=== PATIENT | male | born 1960 | race Hispanic/Latino ===

== ENCOUNTER 2023-11-20 22:29 | Inpatient (IN) | payer OTHER, SELFPAY ==
[2023-11-20 19:02] VITALS: BP 190/102
--- NOTE | 2023-11-20 19:08 | ED.GENMED ---
History of Present Illness
General
Chief Complaint: Musculo-Skeletal Complaint
Time Seen by Provider: 11/20/23 18:58
Travel History
Have you had any contact with someone who has COVID-19?: No
Do you have any symptoms of coronavirus? Fever > 100 degrees, chills, cough, shortness of breath, sore throat, loss of taste or smell, muscle aches, or headache?: No
History of Present Illness
History of Present Illness:
63-year-old male present with right leg pain status post slip and fall. Patient states that he was walking on rocks with crocs on when he slipped and fell. Patient denies striking his head or loss of consciousness. Patient reports right lower leg
pain. Patient denies numbness, weakness, or tingling. Patient is not on blood thinners. Patient did not receive pain medication prior to arrival.
Phy Exam
Physical Exam
Physical Exam:
General: Alert, no acute distress
Head: NCAT
Eyes: clear conjunctiva
Neck: supple
Cardiac: regular rate and rhythm, no murmur
Lungs: clear to auscultation bilaterally. No wheezes, rales, or rhonchi. Speaking full unlabored sentences. No respiratory distress.
Abdomen: soft, nondistended nontender. No rebound or guarding.
MSK: deformity distal shaft right tibia. No overlying laceration. no right medial or lateral malleoli tenderness to palpation. No tenderness to palpation right base of 5th metatarsal or right proximal fibula. no lower extremity edema bilaterally. 2+
right DP pulse. able to move toes. no tenderness to palpation right knee. Right lower extremity neurovascularly intact, compartments soft.
Skin: warm, dry
Neuro: Alert and oriented x3. no focal deficits
Course
Orders/Labs/Results
Orders:
Orders
11/20/23 19:06
Morphine Sulfate 4 mg IV NOW STA
Ondansetron Injectable [Zofran] 4 mg IV NOW STA
Tibia/Fibula, Right 2 View [CR Leg Tibia/fibula Right 2 Vw] Urgent
Comment:
Reason For Exam: distal deformity s/pfall
11/20/23 19:11
Type+Screen Urgent
BMP [Basic Metabolic Panel] Urgent
CBC/With Diff [Complete Blood Count/With Diff] Urgent
Protime/PTT Urgent
11/20/23 22:03
Admit/Transfer Patient As Directed
Co-Sign Provider:
Level of Care: Inpatient admission
Assign to:: Telemetry
Physician / Group: christie russell
Diagnosis: right tibia fx, fibula fx lucero/renal insuff hx,anemia
Reason for Telemetry: Arrhythmia
Date to Stop Telemetry: 11/23/23
Time to Stop Telemetry: 11:00
Reason for Hospitalization: right tibia fx, fibula fx lucero/renal insuff hx
Expected length of stay greater than two midnights?: Yes
ELOS- Estimated Length of Stay in days: 3
I certify the patient meets the requirements for IP care: Yes
Code Status As Directed
Resuscitation Status: Full Code
11/20/23 22:06
EKG [Electrocardiogram (*1)] Urgent
Reason for Study: PreOp
11/23/23 11:00
DC Protocol for Telemetry ONCE
Abnormal Lab Results
11/20/23
19:11
RBC 3.70 L 10^6/uL
(4.70-6.10)
Hgb 10.7 L g/dL
(13.0-18.0)
Hct 31.1 L %
(39.0-52.0)
MPV 10.7 H fL
(7.4-10.4)
Absolute Monos (auto) 0.9 H 10^3/uL
(0.1-0.6)
Monocytes % 9.4 H %
(1.7-9.3)
Chloride 111 H mmol/L
(98-107)
Carbon Dioxide 19 L mmol/L
(22-30)
BUN 46 H mg/dl
(9-20)
Creatinine 2.3 H mg/dL
(0.7-1.3)
Glucose 209 H mg/dl
(70-99)
11/20/23 19:11
11/20/23 19:11
Vital Signs
Initial and Last Documented VS:
Initial Vital Signs
Temp Pulse Resp BP Pulse Ox
98.8 F 86 18 190/102 97
11/20/23 19:02 11/20/23 19:02 11/20/23 19:02 11/20/23 19:02 11/20/23 19:02
Last Documented Vital Signs
Temp Pulse Resp BP Pulse Ox
98.8 F 78 16 171/89 97
11/20/23 19:02 11/20/23 21:19 11/20/23 21:19 11/20/23 21:19 11/20/23 21:19
Procedures
Splinting/Sling Placement
Right Lower Leg:
Pre-splint extermity exam: neurovascular intact
Type of splint: waldemar wrap and other (sugar tong and posterior)
Splint material: fiberglass
Splint checked by provider?: Yes
Normal distal neurovascular exam?: Yes
Additional information:
Applied posterior and sugar tong splint to right lower extremity. Neurovascularly intact. No immediate complications.
MDM/Problems Addressed
MDM/Problems Addressed:
Patient presents to the Emergency Department with right leg pain s/p slip and fall
Number and Complexity of Problems Addressed at the Encounter
� Chronic conditions affecting care:
� Acute Exacerbation and/or Progression of Chronic Illness:
� Differential Diagnosis includes: fracture, dislocation
Amount and/or Complexity of Data to be Reviewed and Analyzed
� I performed an independent evaluation of and my interpretation is:
EKG:
CT:
Xrays: right proximal fibular fracture, displaced right spiral tibia fracture
Laboratory Studies: creatinine 2.3 (unknown baseline)
Other:
� Review of other/old records reveals:
� Clinical information was obtained by an independent historian:
� Prescriptions/Medications Considered but not given:
� Further testing considered but not performed:
Risk of Complications and/or Morbidity or Mortality of Patient Management
� Social Determinants of health affecting care:
� Discussion with other providers (PCP, Hospitalists, Consultants, etc): Discussed with Dr. Ezequiel Britt, orthopedics, who recommended medical admission, NPO after midnight for surgery tomorrow. Discussed with hospitalist who accepts
� Escalation of care including admission/observation vs risk of discharge considered: 63yoM hx DM, HTN presenting with right leg pain s/p slip and fall. No other trauma. Xray right tibia/fibula shows proximal fibular fracture and displaced spiral
tibia fracture. Attempted reduction, splinted with posterior and sugar tong splint. Neurovascularly intact. Labs significant for creatinine 2.3 (unknown baseline). Patient reports history of CKD. Discussed with orthopedics who will consult, surgery
tomorrow. Discussed with hospitalist who accepts for admission.
*Critical Care Note
Total Time (30-74mins, 75-104mins- exclusive of procedures): Not Applicable
ED Attending Note
-
Portions of this chart may have been created with voice recognition software.� Occasional wrong word or��sound alike� substitutions may have occurred due to the inherent limitations of voice recognition software.
Discharge Plan
Departure
Patient Disposition: Admit
Date of Disposition: 11/20/23
Time of Disposition: 20:48
Presentation/result/management discussed w/ accepting MD/DO: Hospitalist
Patient with high blood pressure during this ER visit?: Yes
Discharge Problem:
Closed tibia fracture, Closed fracture of proximal end of fibula
Prescriptions:
No Action
Unobtainable
0
Referrals:
UNKNOWN - PT DOES,NOT KNOW [Family Provider] -
Interventions
Interventions:
*Risk Screen - Suicide Last Done: 11/20/23 19:03
*General Assessment Last Done: 11/20/23 19:04
*Neglect/Abuse Screening Last Done: 11/20/23 19:03
ED- Fall Risk Assessment Last Done: 11/20/23 21:19
*ED COVID-19 Vaccine History Last Done: 11/20/23 19:02
ED-Musculoskeletal Assessment Last Done: 11/20/23 21:19
Discharge Date and Time
Print Language: UZBEK
[2023-11-20] MEDS: MORPHINE SULFATE 4 MG IV (19:13)
[2023-11-20] MEDS: ZOFRAN 4 MG IV (19:13)
[2023-11-20 19:17] LABS: % Basophils 0.7 % (0-2); % Eosinophils 2.8 % (0-6); % Immature Granulocytes 0.3 % (0-0.5); % Lymphocytes 28.9 % (20.5-51.1); % Monocytes 9.4 % (1.7-9.3); % Neutrophils 57.9 % (42.2-75.2); Absolute Basophils 0.1 10^3/uL (0-0.2); Absolute Eosinophils 0.3 10^3/uL (0-0.7); Absolute Lymphocytes 2.6 10^3/uL (1.2-3.4); Absolute Monocytes 0.9 10^3/uL (0.1-0.6); Absolute Neutrophils 5.3 10^3/uL (1.4-6.5); Hematocrit 31.1 % (39.0-52.0); Hemoglobin 10.7 g/dL (13.0-18.0); Mean Corp Hgb Conc. 34.4 g/dL (33.0-37.0); Mean Corpuscular Hgb 28.9 pg (27.0-31.0); Mean Corpuscular Volume 84.1 fL (80.0-94.0); Mean Platelet Volume 10.7 fL (7.4-10.4); Nucleated Red Blood Cells % 0 % (-); Platelet Count 294 10^3/uL (130-400); Red Cell Dist. Width 13.1 % (11.5-14.5); White Blood Cell Count 9.2 10^3/uL (4.8-10.8)
[2023-11-20 19:27] LABS: APTT 29.6 Sec (23.4-35.0); INR 1.08; PT 13.8 Sec (11.4-14.6)
[2023-11-20 19:31] LABS: Blood Urea Nitrogen 46 mg/dl (9-20); Calcium 8.6 mg/dl (8.4-10.2); Carbon Dioxide 19 mmol/L (22-30); Chloride 111 mmol/L (98-107); Glucose 209 mg/dl (70-99); Potassium 4.7 mmol/L (3.5-5.1); Sodium 136 mmol/L (135-145); eGFR 31.13
[2023-11-20 21:19] VITALS: BP 171/89
--- NOTE | 2023-11-20 21:42 | HPS.HSE ---
Addendum entered and electronically signed by CHECO Rushing 11/20/23 23:04:
Patient medication reconciliation was updated
Takes aspirin 81 mg daily
Lipitor 80 mg at bedtime
Vitamin D3 125 mcg daily
Glimepiride 1 mg p.o. twice daily
Levothyroxine 75 mcg p.o. daily
Lisinopril 20 mg daily
Metformin 1000 mg twice daily
For SEGUNDO Dx
Will hold lisinopril 20 mg daily and metformin 1000 mg twice daily
Addendum entered and electronically signed by Bill Arboleda DO 11/20/23 22:39:
Patient is a 63y M with PMH significant for hypothyroidism, DM-II and hypertension who presents to ED complaining of R lower leg pain after [id number] today. Patient was camping locally and slipped and feel striking his R leg. He presented
to the ED for evaluation where imaging noted tib-fib fracture.
Patient denies any prior surgeries at all. He has no personal history of heart disease.
Ass:
Right Tib-Fib Fracture
Benign Hypertension
DM-II
SEGUNDO v CKD
Hypothyroidism
Normocytic Anemia
Plan:
Admit for further evaluation and treatment.
Ortho evaluation for operative repair.
Patient with no prior history of surgeries. No personal history of heart disease.
Increased risk for complications compared to an otherwise healthy individual of his age based on co-morbidities of HTN, DM, CKD.
Benefits of planned procedure outweigh the potential risks and patient is OK to proceed with surgery without additional pre-op evaluation(s).
Hold oral DM medications. Follow glucose and cover with SSI. Update A1C.
Hold lisinopril acutely. IVFs overnight.
Follow renal function over the next 48 hours to determine SEGUNDO v CKD.
Patient states that PCP did tell him his 'kidney numbers were a little high'.
Check iron studies, etc in regards to anemia.
Follow H&H and consider transfusion perioperatively if needed.
Original Note:
Family Physician
-
Family Physician: NOT KNOW UNKNOWN - PT DOES
Chief Complaint
-
Fall right leg pain
History of Present Illness
63-year-old male states she was walking on rocks while camping with her croc shoes when he slipped and fell hitting his right leg. He denies head injury/LOC but reports significant right leg pain. He denies headache, dizziness, fever, chills,
chest pain, palpitations, shortness breath, cough, abdominal pain, nausea, vomiting, diarrhea. He was noted to have a right tib-fib and proximal fibular fracture with displacement in the ER. His past medical history of hypertension, DM 2, renal
insufficiency.
Medical History
Past Medical History
Past Medical History: Reports Other
Additional Past Medical History:
hypertension
DM 2
renal insufficiency
Past Surgical History: Reports None
Social History
Tobacco: Non-smoker
Alcohol: None
Drug: None
Personal:
Living: With Family
Employment: Not Employed
Family History
Family History: Other (mother old age, father in Car accident , 1 of 3 sisters with HTN/DM2, 2 of 4 brothers withdm 2, daughter HTN)
Allergies / Home Medications
Allergies reflects when Allergies were last updated in [employer]
Home Medications with original date entered in [employer]
Allergy/Medication List:
Medications on admission are unable to be verified or confirmed at this time.
Review of Systems
-
History Source: Patient and Family (DAUGHTER AT BEDSIDE )
A 12 point ROS was completed and negative except as noted: Yes
Constitutional: Denies Fever or Chills
EENT: Denies Sore Throat or Runny Nose
Respiratory: Denies Cough or Trouble Breathing
Cardiac: Denies Chest Pain, Diaphoresis, Palpitations or Syncope
Abdomen/GI: Denies Abdominal Pain, Nausea, Vomiting, Diarrhea, Constipated, Bloody Stools or Black Stools
: Denies Dysuria, Frequency, Flank Pain, Incontinence, Difficulty Voiding or Urgency
Musculoskeletal: Reports Other (right leg pain); Denies Joint Pain or Edema
Skin: Denies Itching or Rash
Neurological: Denies Dizzy, Headache or Weakness
Endocrine: Reports No Symptoms
Hematologic/Lymphatic: Reports No Symptoms
Psych: Reports Calm
Physical Exam
Vital Signs
Vital Signs
Temp Pulse Resp BP Pulse Ox
98.8 F 78 16 171/89 97
11/20/23 19:02 11/20/23 21:19 11/20/23 21:19 11/20/23 21:19 11/20/23 21:19
Physical Exam
General: Conversant and Pain; No Fever or Chills
HEENT: NormoCephalic, Anicteric, Moist mucous membranes, Atraumatic, PERRLA, [place] Conjunctivae and No Ptosis
Respiratory: Clear; No Wheezes, Rales or Rhonchi
Cardiac: S1/S2 and Regular Rhythm; No Murmur, Rub, Gallop or Peripheral Edema
Breast: Deferred by me
GI: Soft, Non Tender, Non Distended, Normal Bowel Sounds and No Hepatosplenomegaly
Rectal: Deferred by Provider
Genito-urinary: Deferred by me
Musculoskeletal: No Clubbing, No Cyanosis, No Edema and Other (pain right lower leg 2/2 to fx, current posterior splint in place, sensation intact to distal toes , pink and warm)
Skin: Warm and Dry; No Rash
Neuro: AO x 3 (speaks polish and some chinese), Nonfocal/grossly intact, Cranial Nerves Intact and No Sensory Deficits; No Slurred Speech, Facial Droop or Tremors
Psych: Calm
Laboratory Results
-
11/20/23 19:11
11/20/23 19:11
Laboratory Results
PT 13.8 Sec (11.4-14.6) 11/20/23 19:11
INR 1.08 11/20/23 19:11
APTT 29.6 Sec (23.4-35.0) 11/20/23 19:11
Data Reviewed
-
Diagnostic Radiology: Report Reviewed by me
Lab Data: Labs Reviewed by me
Impression/Plan
-
Impression/plan:
Admit to Tele
#Mechanical fall with distal right tibial Diaphysis and displacement
# Mechanical fall with proximal right fibular displacement with angulation
-Consult Ortho
-Posterior OCL splint
-Pain control, bowel regimen
-Consult Ortho
-PT/OT/case management consult
-Check EKG
#SEGUNDO/ renal insufficiency hx unclear stage
Creat 2.3- no baseline labs here
- HOLD Metformin
-Iv Nss 80 cc/hr
-pt follows with Dr Dallin Devi [phone]
#Normocytic anemia
Hgb 10.7, MCV 84.1
Iron panel, B12, folate
#HTN�benign
Bp 171/89
- pt unsure of his meds
- iv Hydralazine 10 mg q6h prn SBP>165
#DM2
BS 209
-Accu-Cheks with SSI, check HgbA1c
-HOLD Metformin
DVT prophylaxis
Foot pumps
Full code
[2023-11-20 23:11] VITALS: BP 161/95
[2023-11-20] MEDS: NSS 1000 IV (23:38)
[2023-11-20 23:42] LABS: Glucose - Point of Care 249 mg/dl (70-99)
[2023-11-20 23:52] VITALS: BMI 21.6
[2023-11-21] VITALS (13 sets, daily range): BP systolic 105–170; BP diastolic 46–98; PULSE 102–107
[2023-11-21] MEDS: MORPHINE SULFATE 2 MG IV ×2 (00:21→06:30)
--- NOTE | 2023-11-21 01:03 | PTCARENOTE ---
23:10 pt admit from ER,dx: right tibia/fibula fx, RLE splint n place, IVF infusing as ordered, pt aaox3, speaks greek. at the bedside, orientation and admission given in patients language , verbalized understanding.
[2023-11-21 06:30] LABS: % Basophils 0.6 % (0-2); % Eosinophils 2.5 % (0-6); % Immature Granulocytes 0.3 % (0-0.5); % Lymphocytes 24.9 % (20.5-51.1); % Monocytes 10.6 % (1.7-9.3); % Neutrophils 61.1 % (42.2-75.2); Absolute Basophils 0.1 10^3/uL (0-0.2); Absolute Eosinophils 0.2 10^3/uL (0-0.7); Absolute Monocytes 0.9 10^3/uL (0.1-0.6); Absolute Neutrophils 4.9 10^3/uL (1.4-6.5); Hematocrit 29.2 % (39.0-52.0); Hemoglobin 9.7 g/dL (13.0-18.0); Mean Corp Hgb Conc. 33.2 g/dL (33.0-37.0); Mean Corpuscular Hgb 28.9 pg (27.0-31.0); Mean Corpuscular Volume 86.9 fL (80.0-94.0); Mean Platelet Volume 11.2 fL (7.4-10.4); Nucleated Red Blood Cells % 0 % (-); Platelet Count 270 10^3/uL (130-400); Red Blood Cell Count 3.36 10^6/uL (4.70-6.10); Red Cell Dist. Width 13.1 % (11.5-14.5)
[2023-11-21 06:50] LABS: Blood Urea Nitrogen 39 mg/dl (9-20); Calcium 8.4 mg/dl (8.4-10.2); Carbon Dioxide 19 mmol/L (22-30); Chloride 114 mmol/L (98-107); Estimated Creatinine Clearance 31 ml/min; Glucose 159 mg/dl (70-99); Iron 40 ug/dl (49-181); Potassium 4.5 mmol/L (3.5-5.1); Sodium 138 mmol/L (135-145); eGFR 32.83
[2023-11-21 07:00] LABS: Percent Saturation 14 % (20-50); Total Iron Binding Capacity 277 ug/dl (261-462)
--- NOTE | 2023-11-21 07:03 | CON.ORTHO ---
Consultation
-
Date/Time Consultation Requested: 11/20/23 @21:30
Date/Time Consultation Performed: 11/21/23 @0650
Requesting Provider: ER Physician
Performing Provider: Wendy Frias PA-C for Ezequiel Britt MD
Reason for Consultation: right tibia fracture
Consultation - Orthopedics
History
HPI 63yo male admitted to [facility] following a fall yesterday. [place]. He was walking on uneven ground and slipped and fell, landing on the right leg. He had immediate pain and was unable to bear weight. He denies
any other injuries. He was brought to ER for further evaluation. Xrays performed revealed right tibia and fibula fractures. He was placed into a splint and orthopedics was consulted for further management. He is not on any blood thinners.
Currently, he reports his pain is better controlled. He last ate last evening.
PAST MEDICAL HISTORY: hypertension, diabetes mellitus type 2, hypothyroidism
PAST SURGICAL HISTORY: None
SOCIAL HISTORY: denies tobacco, alcohol. He lives at home with his . He does not ambulate with any assistive device
FAMILY HISTORY: Noncontributory
REVIEW OF SYSTEMS: 12 point review of systems obtained and negative except those mentioned in the HPI
Allergies / Home Medications
Allergy/AdvReac Type Severity Reaction Status Date / Time
No Known Allergies Allergy Verified 11/20/23 19:06
�Medication �Instructions �Recorded
aspirin 81 mg chewable tablet 81 mg PO DAILY 11/20/23
atorvastatin 80 mg tablet (Lipitor) 80 mg PO HS 11/20/23
cholecalciferol (vitamin D3) 125 125 mcg PO DAILY 11/20/23
mcg (5,000 unit) tablet
glimepiride 1 mg tablet 1 mg PO BID 11/20/23
levothyroxine 75 mcg tablet 75 mcg PO DAILY 11/20/23
lisinopril 20 mg tablet 20 mg PO DAILY 11/20/23
metformin 1,000 mg tablet 1,000 mg PO BID 11/20/23
Vital Signs / Lab Results
Temp Pulse Resp BP Pulse Ox
98.2 F 81 16 155/96 97
11/21/23 03:40 11/21/23 03:40 11/21/23 03:40 11/21/23 03:40 11/21/23 03:40
11/21/23 05:16
11/21/23 05:16
RADIOGRAPHIC FINDINGS:
Xrays right tibia/fibula show acute spiral type fracture of the distal right tibia diaphysis with severe rotation and displacement of the distal fracture fragment. Acute obliquely oriented fracture of the proximal right fibular diaphysis with mild
displacement and angulation of the distal fracture fragment.
PHYSICAL EXAM:
General: AAOx3, well developed well nourished male in no acute distress
HEENT: NCAT, sclera anicteric, normal hearing
Heart: No JVD
Lungs: Normal work of breathing on room air
MSK: Focused exam of right lower extremity reveals splint in place. No signs of skin breakdown surrounding the splint. Wiggles all toes. Sensation intact to light touch. Cap refill <2secs
Assessment / Plan
ASSESSMENT: 63yo male admitted to [facility] following a mechanical fall resulting in right distal tibia and right proximal fibula fractures
PLAN: Unfortunately, Mr. Gonzalez has sustained right tibia and fibula fractures. Recommend operative fixation. The surgical procedure, risks, benefits, and potential complications were reviewed. He agrees to proceed with right tibia intramedullary
nail. Plan for OR today around 8am under the direction of Dr. Britt. Surgical and blood consents were obtained and placed on the chart. Surgical site marked. He is to remain NPO. Ancef contract negotiator to OR. Type and screen completed. Maintain splint for
now. Continue with pain management as needed. Will continue to follow along.
[2023-11-21 07:38] LABS: Glucose - Point of Care 138 mg/dl (70-99)
[2023-11-21] MEDS: SYNTHROID 75 MCG PO (07:45)
[2023-11-21] MEDS: APRESOLINE 10 MG IV ×2 (07:45→20:15)
[2023-11-21 07:57] LABS: Folate 13.1 ng/ml (2.76-20); Vitamin B12 785 pg/ml (239-931)
[2023-11-21 10:39] LABS: Glucose - Point of Care 180 mg/dl (70-99)
--- NOTE | 2023-11-21 10:46 | W.IMMPOSTOP ---
Surgical Immed Post Op Note
-
Primary Surgeon: Lorenza
Assisting Surgeon: Wendy Frias PA-C
Pre-op Diagnosis: Right tibia and proximal fibula fracture
Post-op Diagnosis: Same
Procedure Performed: Right tibia IM nail fixation
Anesthesia Type: General
Specimen / Cultures: None
Estimated Blood Loss: 10cc
Complications: None
Operative Findings: Dictated
Plan:
WBAT RLE
ASA 325 daily for 30 days for DVT prophylaxis
PT/ OT
--- NOTE | 2023-11-21 12:13 | PTCARENOTE ---
Pt returned to 2S in bed. RLE with decreased movement and sensation, unchanged from AM assessment, assessment otherwise intact. RLE maintained in soft splint/ cast. IVF infusing per order. Telemetry reapplied. Bed locked and in the lowest position,
safety maintained. Oriented to room and call johnston.
--- NOTE | 2023-11-21 14:52 | W.PN.HOSP.TC ---
Today's Communication/Plan
-
PT evaluation post surgical clearance
POD 0 from right tibia nailing
Assessment / Plan
Assessment / Plan
# Mechanical fall with distal right tibial Diaphysis and displacement
# Mechanical fall with proximal right fibular displacement with angulation
- s/p tibial Intra-medullar nailing.
- leg placed in splint postop
- PT/OT eval likely tomorrow
- not having excessive pain
#SEGUNDO vs CKD
AGAP Metabolic acidosis
-baseline unknown
-Known diabetic for 25 years, patient follows up with primary care physician not with nephrology
-Maintain on slow IV fluid and follow renal function
-Hold nephrotoxic medications
-pt follows with Dr Dallin Devi [phone]
#Normocytic anemia
-normocytic anemia, f/u level
#Essential HTN
-As needed hydralazine for systolic blood pressure to 160
#DM2
-Hold metformin/glimepiride with unknown renal function.
-Continue sliding scale
DVT prophylaxis - asa
Full code
Anticipated Discharge: 24 - 48 hours
Subjective/Interval History
-
Date of Service: November 21, 2023
Arabic-speaking patient
Family bedside and translating
not having excessive pain
Objective Data
-
Labs:
Laboratory Results
11/21/23
05:16
WBC 8.0
Hgb 9.7 L
Hct 29.2 L
Plt Count 270
Sodium 138
Potassium 4.5
Chloride 114 H
Carbon Dioxide 19 L
BUN 39 H
Creatinine 2.2 H
Glucose 159 H
Calcium 8.4
Vital Signs:
Vital Signs
Temp Pulse Resp BP Pulse Ox
98.0 F 102 14 155/83 96
11/21/23 12:55 11/21/23 12:55 11/21/23 12:55 11/21/23 12:55 11/21/23 12:55
I&O
11/20/23 11/21/23 11/22/23
06:59 06:59 06:59
Intake Total 640 / 640 100 / 100
Output Total 300 / 300
Balance 340 / 340 100 / 100
Review of Systems
-
Respiratory: Reports No Symptoms
Cardiac: Reports No Symptoms
Abdomen/GI: Reports No Symptoms
Physical Exam
-
General: No Apparent Distress and Comfortable
HEENT: Negative Oxygen
Respiratory: Clear to Auscultation
Cardiac: Regular Rhythm and S1/S2; Negative Murmur or Rub
GI: Soft, Nontender and Nondistended
Musculoskeletal: No Edema and Other (Right leg in cast)
Neuro: Awake, Alert, Oriented, No Motor Deficits and Nonfocal/Grossly Intact
Psych: Calm
--- NOTE | 2023-11-21 15:03 | CM ---
Initial assessment completed with pt and daughter at bedside.
Pt is honduran speaking, and is Self Pay.
Pt lives with his in their daughters family home. Home is 2 story home with 3 steps to enter.
Pt fell while on a camping trip. Indep prior and does not have any current/hx of SNF/VN/DME.
Underwent surgical repair for leg fractures today.
PCP; Fernando ELDER
Pharm; [facility]
PLAN; Will need PT to evaluate. Has supportive family to provide assistance at home if needs to be immobile.
[2023-11-21] MEDS: NSS 1000 IV (15:17)
[2023-11-21 15:26] LABS: Urine Albumin 3+ (Neg - Trace); Urine Bilirubin Negative (Negative); Urine Character Clear (Clear); Urine Color Yellow; Urine Glucose 2+ (Negative); Urine Ketone Trace (Negative); Urine Leukocyte Negative (Negative); Urine Nitrite Negative (Negative); Urine Occult Blood Negative (Negative); Urine Specific Gravity 1.015 (<1.030); Urine Urobilinogen Negative (Neg - 1+)
[2023-11-21 15:32] LABS: Urine Bacteria Few (Negative); Urine Red Blood Cell 0-2 /HPF (0-2); Urine White Cell 0-2 /HPF (0-5)
[2023-11-21 17:23] LABS: Glucose - Point of Care 421 mg/dl (70-99)
[2023-11-21 17:29] LABS: Glucose - Point of Care 453 mg/dl (70-99)
[2023-11-21] MEDS: ASPIRIN 325 MG PO (17:30)
[2023-11-21] MEDS: ANCEF 5 IV (17:30)
[2023-11-21 18:16] LABS: Glucose 394 mg/dl (70-99)
[2023-11-21] MEDS: NOVOLOG FLEXPEN-LOW RESISTANCE SC (18:28)
[2023-11-21] MEDS: NOVOLOG FLEXPEN 10 UNITS SC (18:29)
[2023-11-21] MEDS: ROXICODONE 10 MG PO (18:32)
[2023-11-21 21:23] LABS: Glucose - Point of Care 214 mg/dl (70-99)
[2023-11-22] VITALS (9 sets, daily range): BP systolic 112–174; BP diastolic 69–95; PULSE 96; O2SAT 97
[2023-11-22] MEDS: ANCEF 5 IV (00:29)
[2023-11-22] MEDS: NSS 1000 IV ×2 (04:24→14:51)
[2023-11-22] MEDS: APRESOLINE 10 MG IV ×3 (04:43→23:02)
[2023-11-22] MEDS: ROXICODONE 10 MG PO ×2 (04:49→08:49)
[2023-11-22 06:09] LABS: Hematocrit 29.5 % (39.0-52.0); Hemoglobin 9.8 g/dL (13.0-18.0); Mean Corp Hgb Conc. 33.2 g/dL (33.0-37.0); Mean Corpuscular Hgb 28.9 pg (27.0-31.0); Mean Platelet Volume 11.3 fL (7.4-10.4); Platelet Count 314 10^3/uL (130-400); Red Blood Cell Count 3.39 10^6/uL (4.70-6.10); Red Cell Dist. Width 13.2 % (11.5-14.5); White Blood Cell Count 12.9 10^3/uL (4.8-10.8)
[2023-11-22 06:41] LABS: Blood Urea Nitrogen 41 mg/dl (9-20); Calcium 8.5 mg/dl (8.4-10.2); Carbon Dioxide 15 mmol/L (22-30); Chloride 111 mmol/L (98-107); Estimated Creatinine Clearance 28 ml/min; Glucose 131 mg/dl (70-99); Potassium 4.2 mmol/L (3.5-5.1); Sodium 136 mmol/L (135-145); eGFR 28.16
--- NOTE | 2023-11-22 07:58 | W.PN.ORTHO ---
Today's Communication / Plan
-
63 yo M POD1 right tibia IM nail under the direction of Dr. Britt
-- Patient may be weightbearing as tolerated to right lower extremity with assistive device. We appreciate the assistance of PT/OT.
--Recommend ASA 325 mg daily x 4 weeks for DVT prophylaxis.
--Pain control per primary. Ice and elevation for edema control.
--Maintain surgical splint until 2-week postop visit. Follow-up outpatient in 2 weeks postop for staple removal and repeat x-rays.
-- Case management consult for discharge planning.
-- Orthopedics will continue to follow along.
Assessment
.
Distal Motor Intact: Yes
Dressing:
Clean, dry and intact.
Plan
.
Surgery / Date: R tibia IM nail, [place], 11/20
DVT Prophylaxis: Aspirin
Activity:
Out of bed.
PT/OT
Subjective
.
.:
Mr. Gonzalez is postop day 1 following his right tibia IM nail performed by Dr. Britt. He is resting comfortably in bed this morning. He does endorse some mild aching pain by his distal thigh, but otherwise denies any pain at present. He has no
questions or concerns at this time.
Vital Signs and Labs
.
Vital Signs and Labs:
Lab Results
11/22/23 04:31
11/22/23 04:31
Temp Pulse Resp BP Pulse Ox
98.7 F 64 17 112/69 95
11/22/23 07:20 11/22/23 07:20 11/22/23 07:20 11/22/23 07:20 11/22/23 07:20
PT 13.8 Sec (11.4-14.6) 11/20/23 19:11
INR 1.08 11/20/23 19:11
Physical Exam
-
Directed exam of the right lower extremity reveals surgical splint in place. Good color and warmth of toes. Sensation intact to light touch above and below the splint.
[2023-11-22 08:21] LABS: Glucose - Point of Care 179 mg/dl (70-99)
[2023-11-22] MEDS: ASPIRIN 325 MG PO (08:42)
[2023-11-22] MEDS: SYNTHROID 75 MCG PO (08:42)
[2023-11-22] MEDS: NOVOLOG FLEXPEN-LOW RESISTANCE 1 UNITS SC ×3 (08:43→18:23)
--- NOTE | 2023-11-22 08:43 | W.PN.HOSP.TC ---
Addendum entered and electronically signed by Karri Larios MD 11/22/23 18:35:
Patient's daughter requested that patient stay in the hospital tonight
Original Note:
Today's Communication/Plan
-
Spoke to patient's daughter Tran -- she would like to sort everything out with patient and discuss with him outpatient follow-up before he is discharged
Continue ASA and remaining management as below
Assessment / Plan
Assessment / Plan
Physical Exam
General: No Apparent Distress and Comfortable
HEENT: Normocephalic
Respiratory: Clear to Auscultation
Cardiac: Regular Rhythm and S1/S2
GI: Soft, Nontender and Nondistended. Positive bowel sounds.
Musculoskeletal: No Edema and Other (Right leg in cast)
Neuro: Awake, Alert, Oriented, No Motor Deficits and Nonfocal/Grossly Intact
Psych: Calm
Assessment/Plan
# Mechanical fall with distal right tibial Diaphysis and displacement
# Mechanical fall with proximal right fibular displacement with angulation
- s/p tibial Intra-medullar nailing.
- leg placed in splint postop
- Weightbearing as tolerated to right lower extremity with assistive device
- PT/OT
--Recommend ASA 325 mg daily x 4 weeks (first day was November 21, 2023) for DVT prophylaxis.
--Pain control per primary. Ice and elevation for edema control.
--Maintain surgical splint until 2-week postop visit. Follow-up outpatient in 2 weeks postop for staple removal and repeat x-rays.
-- Orthopedics will continue to follow along.
#SEGUNDO vs CKD
AGAP Metabolic acidosis
-baseline unknown
-Known diabetic for 25 years, patient follows up with primary care physician not with nephrology
-Maintain on slow IV fluid and follow renal function
-Hold nephrotoxic medications
-pt follows with Dr Dallin Devi [phone]
#Normocytic anemia
-normocytic anemia, f/u level
#Essential HTN
-As needed hydralazine for systolic blood pressure to 160
#DM2
-Hold metformin/glimepiride with unknown renal function.
-Continue sliding scale
On November 22, 2023: I discussed discharge planning with shoe caser, patient's daughter Delvin (over the phone), patient's additional family (present in patient's room) and in the presence of patient in the patient's room. I explained to Tran
that patient needs close outpatient physician follow-up and needs to continue to take all of his medications outpatient as prescribed. Challenge is that patient does not have insurance. As per patient's daughter Tran, she would like to speak with
patient before being discharged.
DVT prophylaxis - asa
Full code
Anticipated Discharge: 24 - 48 hours
Subjective/Interval History
-
Date of Service: November 22, 2023
Patient was seen and examined. Besides mild aching pain in his distal thigh, he denied any new significant symptoms or complaints.
Objective Data
-
Labs:
Laboratory Results
11/22/23
04:31
WBC 12.9 H
Hgb 9.8 L
Hct 29.5 L
Plt Count 314
Sodium 136
Potassium 4.2
Chloride 111 H
Carbon Dioxide 15 L
BUN 41 H
Creatinine 2.5 H
Glucose 131 H
Calcium 8.5
Vital Signs:
Vital Signs
Temp Pulse Resp BP Pulse Ox
98.7 F 64 17 112/69 95
11/22/23 07:20 11/22/23 07:20 11/22/23 07:20 11/22/23 07:20 11/22/23 07:20
I&O
11/21/23 11/22/23 11/23/23
06:59 06:59 06:59
Intake Total 640 / 640 2920 / 2920
Output Total 300 / 300 700 / 700
Balance 340 / 340 2220 / 2220
[2023-11-22 14:02] LABS: Glucose - Point of Care 171 mg/dl (70-99)
--- NOTE | 2023-11-22 14:12 | CM ---
Addendum entered by Krupa Canseco 11/22/23 17:06:
PATIENT PRIMARY CARE PHYSICIAN ID DR. LAURYN MILLS in [place]. .
Original Note:
Met with patient and in room. Spoke with daughter via speaker phone in room. Patient does not have insurance. Explained to daughter the need for RW and W/CH for discharge. She has agreed to buy from [employer] or [employer] and anticipate
receipt by tomorrow. Will need to ensure safe discharge. Daughter explained to parents who do not speak Haitian. Attending aware.
[2023-11-22 17:22] LABS: Glucose - Point of Care 167 mg/dl (70-99)
[2023-11-22 21:38] LABS: Glucose - Point of Care 160 mg/dl (70-99)
[2023-11-22] MEDS: TYLENOL 650 MG PO (22:21)
[2023-11-23 02:44] VITALS: BP 171/90
[2023-11-23] MEDS: APRESOLINE 5 MG IV (03:22)
[2023-11-23] MEDS: NSS 1000 IV (04:08)
[2023-11-23 04:12] VITALS: BP 158/85
[2023-11-23 06:33] LABS: Hematocrit 26.5 % (39.0-52.0); Hemoglobin 8.7 g/dL (13.0-18.0); Mean Corp Hgb Conc. 32.8 g/dL (33.0-37.0); Mean Corpuscular Hgb 29.3 pg (27.0-31.0); Mean Corpuscular Volume 89.2 fL (80.0-94.0); Mean Platelet Volume 11.6 fL (7.4-10.4); Platelet Count 274 10^3/uL (130-400); Red Blood Cell Count 2.97 10^6/uL (4.70-6.10); Red Cell Dist. Width 13.3 % (11.5-14.5); White Blood Cell Count 10.8 10^3/uL (4.8-10.8)
[2023-11-23 07:01] LABS: Blood Urea Nitrogen 39 mg/dl (9-20); Calcium 8.4 mg/dl (8.4-10.2); Carbon Dioxide 15 mmol/L (22-30); Chloride 112 mmol/L (98-107); Estimated Creatinine Clearance 33 ml/min; Glucose 138 mg/dl (70-99); Potassium 4.3 mmol/L (3.5-5.1); Sodium 135 mmol/L (135-145); eGFR 34.72
[2023-11-23 07:10] LABS: Glucose - Point of Care 148 mg/dl (70-99)
--- NOTE | 2023-11-23 07:12 | W.PN.ORTHO ---
Today's Communication / Plan
-
63 yo M POD2 right tibia IM nail under the direction of Dr. Britt
-- Patient may be weightbearing as tolerated to right lower extremity with assistive device. We appreciate the assistance of PT/OT.
--Recommend ASA 325 mg daily x 4 weeks for DVT prophylaxis.
--Pain control per primary. Ice and elevation for edema control.
--Maintain surgical splint until 2-week postop visit. Follow-up outpatient in 2 weeks postop for staple removal and repeat x-rays.
-- Case management consult for discharge planning.
-- Patient is orthopedically stable postop. Will sign off at this time. Please reach out with any questions or concerns.
Assessment
.
Distal Motor Intact: Yes
Dressing:
Clean, dry and intact.
Plan
.
Surgery / Date: R tibia IM nail, Lorenza, 11/20
DVT Prophylaxis: Aspirin
Activity:
Out of bed.
PT/OT
Subjective
.
.:
Patient resting comfortably in bed this morning. He reports that his pain is well controlled. He endorses some discomfort at the knee
Vital Signs and Labs
.
Vital Signs and Labs:
Lab Results
11/23/23 05:21
11/23/23 05:21
Temp Pulse Resp BP Pulse Ox
98.6 F 91 18 158/85 97
11/23/23 02:44 11/23/23 03:22 11/23/23 02:44 11/23/23 04:12 11/23/23 02:44
PT 13.8 Sec (11.4-14.6) 11/20/23 19:11
INR 1.08 11/20/23 19:11
Physical Exam
-
Directed exam of the right lower extremity reveals surgical splint in place. Good color and warmth of toes. Sensation intact to light touch above and below the splint.
[2023-11-23 07:24] VITALS: BP 176/95
[2023-11-23] MEDS: SYNTHROID 75 MCG PO (08:41)
[2023-11-23] MEDS: ASPIRIN 325 MG PO (08:41)
[2023-11-23] MEDS: NOVOLOG FLEXPEN-LOW RESISTANCE SC (08:41)
[2023-11-23] MEDS: APRESOLINE 10 MG IV (11:30)
--- NOTE | 2023-11-23 11:43 | W.PN.HOSP.TC ---
Today's Communication/Plan
-
Discharge today
Assessment / Plan
Assessment / Plan
Physical Exam
General: No Apparent Distress and Comfortable
HEENT: Normocephalic
Respiratory: Clear to Auscultation
Cardiac: Regular Rhythm and S1/S2
GI: Soft, Nontender and Nondistended. Positive bowel sounds.
Musculoskeletal: No Edema and Other (Right leg in cast)
Neuro: Awake, Alert, Oriented, No Motor Deficits and Nonfocal/Grossly Intact
Psych: Calm
Assessment/Plan
# Mechanical fall with distal right tibial Diaphysis and displacement
# Mechanical fall with proximal right fibular displacement with angulation
- s/p tibial Intra-medullar nailing.
- leg placed in splint postop
- Weightbearing as tolerated to right lower extremity with assistive device
- PT/OT
--Recommend ASA 325 mg daily x 4 weeks (first day was November 21, 2023) for DVT prophylaxis.
--Pain control per primary. Ice and elevation for edema control.
--Maintain surgical splint until 2-week postop visit. Follow-up outpatient in 2 weeks (with Dr. Ezequiel Britt) for postop for staple removal and repeat x-rays.
-- Orthopedics will continue to follow along.
#Acute Kidney Injury versus Chronic Kidney Disease
Metabolic acidosis
-baseline unknown but creatinine stable
-Start oral sodium bicarbonate
-Known diabetic for 25 years, patient follows up with primary care physician not with nephrology
-Maintain on slow IV fluid and follow renal function
-Hold nephrotoxic medications
-pt follows with Dr Dallin Devi [phone]
-Needs nephrology follow-up outpatient
#Normocytic anemia
-normocytic anemia, f/u level
#Essential Hypertension
-As needed hydralazine for systolic blood pressure to 160
-Started Amlodipine
-Hold Lisinopril until outpatient PCP follow-up given kidney function
#DM2
-Hold metformin/glimepiride with unknown renal function.
-Continue sliding scale
-Carb-controlled diet
On November 22, 2023: I discussed discharge planning with case management social worker, patient's daughter Delvin (over the phone), patient's additional family (present in patient's room) and in the presence of patient in the patient's room. I explained to Tran
that patient needs close outpatient physician follow-up and needs to continue to take all of his medications outpatient as prescribed. Challenge is that patient does not have insurance. As per patient's daughter Tran, she would like to speak with
patient before being discharged.
On November 23, 2023: I spoke to patient's daughter Tran who requested patient be discharged and she mentioned she will arrange outpatient follow-up and product picker all of his medications from his pharmacy.
DVT prophylaxis - asa
Full code
More than 30 minutes spent in discharge including
Final examination of the patient
Summarizing hospital stay
Instructions for continuing care to all relevant caregivers
Preparation of discharge records, prescriptions, and referral forms
Total time spent (in minutes): 40
Anticipated Discharge: Today
Subjective/Interval History
-
Date of Service: November 23, 2023
Patient was seen and examined. He reported feeling better today, reported almost no pain or any other symptoms/complaints.
Objective Data
-
Labs:
Laboratory Results
11/23/23
05:21
WBC 10.8
Hgb 8.7 L
Hct 26.5 L
Plt Count 274
Sodium 135
Potassium 4.3
Chloride 112 H
Carbon Dioxide 15 L
BUN 39 H
Creatinine 2.1 H
Glucose 138 H
Calcium 8.4
Vital Signs:
Vital Signs
Temp Pulse Resp BP Pulse Ox
99 F 98 18 176/95 97
11/23/23 07:24 11/23/23 07:24 11/23/23 07:24 11/23/23 07:24 11/23/23 07:24
I&O
11/22/23 11/23/23 11/24/23
06:59 06:59 06:59
Intake Total 2920 / 2920 480 / 480
Output Total 700 / 700 450 / 450
Balance 2220 / 2220 30 / 30
[2023-11-23 11:48] VITALS: BP 180/98
[2023-11-23] MEDS: SODIUM BICARBONATE 650 MG PO (11:57)
[2023-11-23 12:00] VITALS: BP 174/89
[2023-11-23 12:01] LABS: Glucose - Point of Care 200 mg/dl (70-99)
[2023-11-23] MEDS: NOVOLOG FLEXPEN-LOW RESISTANCE 2 UNITS SC (12:16)
[2023-11-23] MEDS: NORVASC 2.5 MG PO (13:00)
--- NOTE | 2023-11-23 14:06 | W.DS.TRANS ---
DC Summary - Title Examiner
-
Discharge Instructions:
Discharge Diagnosis/Procedures # Mechanical fall with distal right tibial
Diaphysis and displacement
# Mechanical fall with proximal right fibular
displacement with angulation
# Acute Kidney Injury versus Chronic Kidney
Disease
# Metabolic acidosis
#Hypertension and Hypertensive Urgency
#Anemia
#Essential Hypertension
#Type2 Diabetes Mellitus
Diet Low Sodium,Diabetic, Carb Controlled
Activity Other activity
Additional Activity Weightbearing as tolerated to right lower
extremity with assistive device
Driving Restrictions Not until seen by your Dr
Bathing Restrictions Splint needs to remain dry.
Blood Work Recheck CBC, BMP and Magnesium in the next 2 to
3 days.
Instructions: High blood pressure emergencies
Stand-Alone Forms:
Changes to Home Medications: Yes
Discharge Medications:
DC Medications w/original date entered in [facility]
aspirin 81 mg chewable tablet 81 mg PO DAILY 11/20/23
atorvastatin 80 mg tablet (Lipitor) 80 mg PO HS 11/20/23
cholecalciferol (vitamin D3) 125 mcg (5,000 unit) tablet 125 mcg PO DAILY 11/20/23
glimepiride 1 mg tablet 1 mg PO BID 11/20/23
levothyroxine 75 mcg tablet 75 mcg PO DAILY 11/20/23
lisinopril 20 mg tablet 20 mg PO DAILY 11/20/23
metformin 1,000 mg tablet 1,000 mg PO BID 11/20/23
amlodipine 5 mg tablet 5 mg PO DAILY #30 tabs 11/23/23
aspirin 325 mg tablet 325 mg PO DAILY 25 days #25 tabs 11/23/23
sodium bicarbonate 650 mg tablet 650 mg PO BID #60 tabs 11/23/23
Home Medication Changes
Amlodipine is a new medication.
Aspirin is now 325 mg daily for 4 weeks total (25 days left as received 3 days in the hospital already). Check with your primary care provider about resuming Aspirin 81 mg daily after completing Aspirin 325 mg daily.
Sodium bicarbonate is a new medication.
Due to your renal function, glimepiride, lisinopril and metformin are all on hold for now.
Pending Results: No
Total time spent discharging patient (in min): 40
--- NOTE | 2023-11-23 14:26 | CM ---
Patient has been medically cleared for discharge to son's home with no additional skilled services. Reiterated to daughter that patient needs to have follow-up lab work within the next 2-3 days and reports to his PCP. Expressed understanding.
Daughter will transport and has a transport chair and RW.
--- NOTE | 2023-11-26 11:35 | W.DCSUMMARY ---
Discharge Summary
Discharge Data
Date of Admission: 11/20/23
Date of Discharge: 11/23/23
Total time spent discharging patient (in min): 40
-
Pending Results: No
Hospital Course
63 y/o male who presented with a right lower leg fracture following a mechanical fall with resulting right tibial distal shaft fracture and right proximal fibula fracture. Orthopedics was consulted and patient had a right tibia intramedullary nail
fixation.
Patient was also noted to have elevated creatinine (unknown whether baseline CKD although did have risk factors for CKD including Diabetes Mellitus and Hypertension) and metabolic acidosis. Patient's creatinine remained stable, case was discussed
with nephrology and patient was discharged on bicarb.
Patient was stable for discharge, case was discussed with patient's daughter who mentioned she will arrange close outpatient follow-up. She acknowledged understanding of the importance of close outpatient follow-up.
Discharge Plan
-
Patient Disposition: Home (Routine Discharge)
Discharge Diagnosis/Procedures: # Mechanical fall with distal right tibial Diaphysis and displacement
# Mechanical fall with proximal right fibular displacement with angulation
# Acute Kidney Injury versus Chronic Kidney Disease
# Metabolic acidosis
#Hypertension and Hypertensive Urgency
#Anemia
#Essential Hypertension
#Type2 Diabetes Mellitus
Condition: Fair
Diet: Low Fat, Low Cholesterol, Low Sodium and Diabetic, Carb Controlled
Activity: Other activity
Additional Activity: Weightbearing as tolerated to right lower extremity with assistive device
Driving Restrictions: Not until seen by your Dr
Bathing Restrictions: Splint needs to remain dry.
Blood Work: Recheck CBC, BMP and Magnesium in the next 2 to 3 days.
Activity Restrictions/Additional Instructions:
It is very important that you follow-up with your outpatient physician in the next 2 to 3 days to recheck CBC, BMP and Magnesium.
weight bearing as tolerated right lower extremity with use of assistive device/walker. Maintain surgical splint until 2-week postop visit.
Ice and elevation for edema control.
Instructions: High blood pressure emergencies
Referrals:
Fernando Devi [Other] - in one day (Primary Care Physician)
Ezequiel Britt MD [Active] - in two weeks
(Follow-up with surgoen in 2 weeks postop for staple removal and repeat x-rays.
)
Rita Perry MD [Active] - in one to two weeks
Additional Discharge Medication Instructions: Amlodipine is a new medication.
Aspirin is now 325 mg daily for 4 weeks total (25 days left as received 3 days in the hospital already). Check with your primary care provider about resuming Aspirin 81 mg daily after completing Aspirin 325 mg daily.
Sodium bicarbonate is a new medication.
Due to your renal function, glimepiride, lisinopril and metformin are all on hold for now.
Prescriptions:
New
aspirin 325 mg Tablet
325 mg PO DAILY 25 Days Qty: 25 0RF
Rx Instructions:
Next dose on November 24, 2023
amlodipine 5 mg tablet
5 mg PO DAILY Qty: 30 0RF
sodium bicarbonate 650 mg Tablet
650 mg PO BID Qty: 60 0RF
Continued
atorvastatin [Lipitor] 80 mg Tablet
80 mg PO HS
levothyroxine 75 mcg Tablet
75 mcg PO DAILY
cholecalciferol (vitamin D3) 125 mcg (5,000 unit) Tablet
125 mcg PO DAILY
Held
lisinopril 20 mg Tablet
20 mg PO DAILY
Hold Instructions: Resume on 12/01/23. Resume if any only if your outpatient providers say it is okay to resume this medication.
glimepiride 1 mg Tablet
1 mg PO BID
Hold Instructions: Resume on 12/07/23. Resume if any only if your outpatient providers say it is okay to resume this medication.
metformin 1,000 mg Tablet
1,000 mg PO BID
Hold Instructions: Resume on 12/21/23. Resume if any only if your outpatient providers say it is okay to resume this medication.
aspirin 81 mg Tablet,Chewable
81 mg PO DAILY
Hold Instructions: Resume on 12/19/23.
Discharge Orders:
Discharge Patient (As Directed); Ordered 11/23/23
Ordered By: Karri Larios
Discharge Date and Time
Discharge Date/Time: 11/23/23 15:17
Print Language: TAJIK
== END 2023-11-23 15:17 | disposition home or self-care (01) | DRG 493 ==
LOC: 2 SOUTH 22:29
PROVIDERS: Clinical Nurse Specialist Family Health; Hospitalist; ADMITTING PHYSICIAN Hospitalist; ATTENDING PHYSICIAN Hospitalist; CONSULT PHYSICIAN Orthopaedic Surgery; EMERGENCY PHYSICIAN Emergency Medicine
PROC: 0QSG06Z Reposition Right Tibia with Intramedullary Internal Fixation Device, Open Approach (ICD-10-PCS; 2023-11-21)
DX: S82.201A Unspecified fracture of shaft of right tibia, initial encounter for closed fracture (principal); E87.20 Acidosis, unspecified; N17.9 Acute kidney failure, unspecified; S82.831A Other fracture of upper and lower end of right fibula, initial encounter for closed fracture; D64.9 Anemia, unspecified; I16.0 Hypertensive urgency; E11.22 Type 2 diabetes mellitus with diabetic chronic kidney disease; N18.9 Chronic kidney disease, unspecified; I12.9 Hypertensive chronic kidney disease with stage 1 through stage 4 chronic kidney disease, or unspecified chronic kidney disease; W01.0XXA Fall on same level from slipping, tripping and stumbling without subsequent striking against object, initial encounter; Y93.01 Activity, walking, marching and hiking; Y92.833 Campsite as the place of occurrence of the external cause; Z83.3 Family history of diabetes mellitus; Z79.82 Long term (current) use of aspirin; Z79.84 Long term (current) use of oral hypoglycemic drugs; Z79.890 Hormone replacement therapy; Z59.7 Insufficient social insurance and welfare support
CPT/HCPCS: 29515; 73590; 76000; 80048; 81003; 81015; 82607; 82728; 82746; 82947; 82962; 83540; 83550; 85025; 85027; 85610; 85730; 86850; 86900; 86901; 93005; 96374; 96375; 97116; 97162; 97165; 97530; 97535; 99285; C1713; C1769